=== PATIENT | female | born 1945 | race Caucasian/White ===

== ENCOUNTER 2020-08-03 00:47 | Outpatient (CLI) | payer MEDICARE, OTHER, SELFPAY ==
[2020-08-03 18:04] LABS: SARS-CoV-2 RNA PCR Negative
== END 2020-08-03 00:48 | disposition home or self-care (01) ==
LOC: ANHCOVIDDT 00:47
PROVIDERS: Visit Provider Internal Medicine Gastroenterology
DX: Z01.812 Encounter for preprocedural laboratory examination (principal); Z20.828 Contact with and (suspected) exposure to other viral communicable diseases
CPT/HCPCS: 87635; C9803; U0003

== ENCOUNTER 2020-08-06 00:20 | Day surgery (SDC) | payer MEDICARE, OTHER, SELFPAY ==
[2020-08-01 15:40] VITALS: BMI 30.7
[2020-08-06 07:55] VITALS: BP 140/86; PULSE 65; RESP 16; TEMP 36.4; O2SAT 97; BMI 31.0
[2020-08-06] MEDS: LACTATED RINGERS 1,000 ML 150 ML IV CONT (08:08)
--- NOTE | 2020-08-06 08:37 | WPDANESEPPF ---
Anes - Initial Pre Proc Eval Procedure: Operation Date: 08/06/20 09:00 Proposed Procedures p Esophagogastroduodenoscopy & Screening Colonoscopy - Juaquin Lyons MD Date/Time: 08/06/20 08:37 Surgeon: Juaquin Lyons MD Pre Op Diagnosis: dysphagia, ulcerative colitis, hx of polyps Patient Data Age: 74 Gender: F Height: 5 ft 4 in Weight: 82 kg Last Vital Signs Temp 97.5 F L 08/06/20 07:55 Pulse 65 08/06/20 07:55 Resp 16 08/06/20 07:55 BP 140/86 08/06/20 07:55 Pulse Ox 97 08/06/20 07:55 Allergies Allergy/AdvReac Type Severity Reaction Status Date / Time Sulfa (Sulfonamide Allergy Severe Other Verified 08/06/20 07:52 Antibiotics) Home Medications Medication Instructions Recorded Confirmed Type alprazolam 0.25 mg PO TID PRN 08/01/20 08/06/20 History atorvastatin 20 mg PO 3XW 08/01/20 08/06/20 History budesonide 6 mg PO DAILY 08/01/20 08/06/20 History bupropion HCl 300 mg PO DAILY 08/01/20 08/06/20 History duloxetine 60 mg PO DAILY 08/01/20 08/06/20 History enalapril maleate 20 mg PO DAILY 08/01/20 08/06/20 History gabapentin 600 mg PO TID 08/01/20 08/06/20 History hydrocodone-acetaminophen 1 tablet PO Q6H PRN 08/01/20 08/06/20 History omeprazole 20 mg PO DAILY 08/01/20 08/06/20 History primidone 100 mg PO TID 08/01/20 08/06/20 History propranolol 20 mg PO TID PRN 08/01/20 08/06/20 History Patient hx anesthesia problems: none Family hx anesthesia problems: none PMFSH Past Medical History Medical History (Updated 08/06/20 @ 08:36 by Ed Shine MD) Anxiety Depression Essential tremor GERD (gastroesophageal reflux disease) Hyperlipidemia Hypertension Social History Social History Alcohol intake: current Substance use: never Substance use type: does not use Living arrangements: with family Spiritual care concerns: No Anes - Eval Final PreProcedure Day of Procedure 10/27/20 08:37 Patient weight: overweight Heart: regular rate and rhythm Lungs: clear to auscultation Airway: Mallampati scale (has TMJ and would like bite block placed right before sleep) class II Neurological: alert and oriented Last oral intake: >/= 8 hours ASA classification: III Emergent: no Anesthetic plan: proceed Anesthesia type and monitoring: general GIVS and standard monitoring Informed Consent: The patient's anesthetic plan and its attendant risks and benefits were discussed with the patient/family/POA. Questions were solicited and answers provided to the satisfaction of the patient/family/POA.
--- NOTE | 2020-08-06 08:46 | P.HP_ITS ---
History of Present Illness History of Present Illness Consent: Risks, benefits, and alternatives have been discussed and questions answered. Patient agrees to proceed with procedure. Chief complaint: dysphagia, ulcerative colitis, hx of polyps Narrative: Jenny Villavicencio is a 74 year old female who has had increasing difficulty swallowing, particularly solid food. During a meal she may need to stop eating 1 even water will not pass. She has a history of having esophageal stricture several years ago. Her stools which have been saw for years remain soft and poorly formed at times requiring that she use Imodium. [facility] Past Medical History Medical History Anxiety Depression Essential tremor GERD (gastroesophageal reflux disease) Hyperlipidemia Hypertension Social History Social History Alcohol intake: current Substance use: never Substance use type: does not use Living arrangements: with family Spiritual care concerns: No Meds Home Medications and Allergies Home Medications Medication Instructions Recorded Confirmed Type alprazolam 0.25 mg PO TID PRN 08/01/20 08/06/20 History atorvastatin 20 mg PO 3XW 08/01/20 08/06/20 History budesonide 6 mg PO DAILY 08/01/20 08/06/20 History bupropion HCl 300 mg PO DAILY 08/01/20 08/06/20 History duloxetine 60 mg PO DAILY 08/01/20 08/06/20 History enalapril maleate 20 mg PO DAILY 08/01/20 08/06/20 History gabapentin 600 mg PO TID 08/01/20 08/06/20 History hydrocodone-acetaminophen 1 tablet PO Q6H PRN 08/01/20 08/06/20 History omeprazole 20 mg PO DAILY 08/01/20 08/06/20 History primidone 100 mg PO TID 08/01/20 08/06/20 History propranolol 20 mg PO TID PRN 08/01/20 08/06/20 History Allergies Allergy/AdvReac Type Severity Reaction Status Date / Time Sulfa (Sulfonamide Allergy Severe Other Verified 08/06/20 07:52 Antibiotics) Vital Signs Vital Signs - 24 hr 08/06/20 07:55 Temperature 36.4 C L Pulse Rate 65 Respiratory Rate 16 Blood Pressure 140/86 Pulse Oximetry 97 Exam Const: General: alert Orientation/consciousness: patient oriented x3 Resp: Auscultation: clear to auscultation bilaterally Cardio: Rhythm: regular rhythm GI: GI Palp: Yes Soft to palpation and No Tenderness to palpation present (GI) Neuro: General: patient oriented x3 Assessment and Plan Assessment and plan (1) Dysphagia: Code(s): R13.10 - Dysphagia, unspecified Status: Acute Assessment and Plan: EGD with possible biopsy or dilatation or cautery. (2) Chronic diarrhea: Code(s): K52.9 - Noninfective gastroenteritis and colitis, unspecified Status: Acute Assessment and Plan: Colonoscopy with possible biopsy or polypectomy or cautery or injection of substances.
[2020-08-06 09:24] VITALS: BP 91/45; PULSE 56; RESP 20; O2SAT 95
[2020-08-06 09:34] VITALS: BP 96/48; PULSE 55; RESP 20; O2SAT 97
[2020-08-06 09:44] VITALS: BP 121/74; PULSE 54; RESP 20; O2SAT 97
== END 2020-08-06 10:13 | disposition home or self-care (01) ==
PROVIDERS: PCP Internal Medicine; Visit Provider Internal Medicine Gastroenterology
PROC: 0DJ08ZZ Inspection of Upper Intestinal Tract, Via Natural or Artificial Opening Endoscopic (ICD-10-PCS; CPT 43235; principal; 2020-08-06 09:00)
DX: Z12.11 Encounter for screening for malignant neoplasm of colon (principal); R19.7 Diarrhea, unspecified; K57.30 Diverticulosis of large intestine without perforation or abscess without bleeding; I10 Essential (primary) hypertension; E78.5 Hyperlipidemia, unspecified; R13.10 Dysphagia, unspecified; K21.9 Gastro-esophageal reflux disease without esophagitis; F41.8 Other specified anxiety disorders; G25.0 Essential tremor
CPT/HCPCS: 45380; 43249; 43239; 87081; 88305; J2704; J7120

== ENCOUNTER 2024-02-13 12:19 | Emergency (ER) | payer MEDICARE, OTHER, SELFPAY ==
[2024-02-13] VITALS (14 sets, daily range): BP systolic 127–157; BP diastolic 70–126; PULSE 86–116; RESP 17–27; TEMP 36.8–38; O2SAT 90–96
--- NOTE | ~2024-02-13 | CT_ITS ---
EXAMINATION: CT facial bones wo con DATE: 02/13/2024 15:00 INDICATION: Facial pain TECHNIQUE: Computed tomography (CT) of the facial bones and maxillofacial region was performed withou t intravenous contrast. Coronal reconstructions were obtained. Automated exposure control and iterati ve reconstruction technique were employed. The dose-length product was 298.05 mGy-cm. COMPARISON: None. FINDINGS: No maxillofacial fractures. Specifically the mandible, zygomatic arches, nasal bones and emmanuel of the orbits and paranasal sinuses are all intact. There is mild leftward bowing of the nasal septum. Duncan ges of bilateral intraocular lens replacement. Orbits are otherwise normal. Mastoid air cells, middle ear cavities and paranasal sinuses are all clear. Severe osteoarthritis at the bilateral temporomand ibular joints. Chronic dental disease with multiple absent teeth and multiple dental restorations. Bi lateral parotid and submandibular glands are normal and symmetric. No pathologically enlarged lymphad enopathy at the face or visualized upper neck. Mild cervical levocurvature with severe spondylosis. IMPRESSION: 1. Severe cervical spondylosis and severe bilateral temporomandibular osteoarthritis. Reviewed, dictated and finalized at location A. IMPRESSION: 1. Severe cervical spondylosis and severe bilateral temporomandibular osteoarth ritis.
--- NOTE | ~2024-02-13 | CT_ITS ---
EXAMINATION: CTA chest DATE: 02/13/2024 17:13 INDICATION: Asymmetric left-sided superior mediastinal widening on chest radiograph TECHNIQUE: Computed tomographic angiography (CTA) of the chest was performed without and with 100 mL Omnipaque-350 intravenous contrast. Volume-rendered 3D-reconstructions of the aorta and large arterie s were constructed by the technologist on a separate workstation. Automated exposure control and iter ative reconstruction technique were employed. The dose-length product was 624.07 mGy-cm. COMPARISON: None. FINDINGS: There are small bilateral posterior layering pleural effusions with dependent compressive atelectasis in the bilateral lower lobes. There is an additional bandlike consolidation in the bilateral lower l obes and some paramediastinal atelectasis in the bilateral upper lobes. Mosaic attenuation in the upp er lungs most likely represents additional atelectasis with subsegmental regions of air trapping rela ollie to small airway disease. No smooth septal line thickening to suggest pulmonary edema. Heart size is normal. There is a moderate-sized surrounding pericardial effusion. There is fusiform aneurysmal dilation of the ascending aorta and aortic arch. This measures 5.3 x 4.7 cm in the ascending aorta at the level of the john and increases to 5.7 x 5.0 cm at the level of t he takeoff of the left subclavian artery where there is an intramural hematoma surrounding a penetrat ing atherosclerotic ulcer which measures approximately 1.5 cm in longitudinal length, 2.7 cm and circ umferential length and which extends up to 1 cm in depth. The aortic wall thickness inclusive of the intramural hematoma at this location measures approximately 1.5 cm. No evident dissection, aspen rupt ure or extramural contrast extravasation. The intramural hematoma appears to track proximally to the aortic root. The density appears slightly higher than that of the pericardial effusion. The hematoma does not appear to extend significantly beyond the takeoff of the left subclavian artery and there is no involvement of the great vessels arising from the arch. The more distal descending thoracic and v isualized upper abdominal aorta are normal in caliber. The left main and right coronary arteries are opacified with contrast. The dilation of the aorta exhibits mass effect with rightward deviation of t he trachea and proximal esophagus and extrinsic compression of the left brachiocephalic vein between the anterior margin of the aorta and the medial head of the clavicle. The injected contrast from the left upper extremity extends primarily to the superior vena cava via multiple cervical and upper ches t wall collaterals. There is fluid within the distal two thirds of the esophagus which could be seen with reflux. No path ologically enlarged thoracic lymphadenopathy. Likely benign 1.2 cm left thyroid nodule. Liver, gallbl adder, spleen, pancreas and bilateral adrenal glands are normal. Likely age-related mild bilateral re nal atrophy. IMPRESSION: 1. 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 Dr. Aguilera discussed these findings with Dr. Palma at 5:20 PM. 2. Moderate-sized pericardial effusion which is of lower density than the aortic intramural hematoma but nonetheless greater than simple fluid attenuation and cannot exclude hemopericardium. 3. Low-density small bilateral pleural effusions with associated compressive atelectasis in both lung s. Reviewed, dictated and finalized at location A. IMPRESSION: 1. 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
--- NOTE | ~2024-02-13 | XR_ITS ---
EXAMINATION: XR chest 1V portable DATE: 02/13/2024 14:10 INDICATION: Chest pain TECHNIQUE: frontal view of the chest was obtained. COMPARISON: None FINDINGS: Airspace opacities in the left mid and lower and right lower lung zones. Possible small left pleural effusion. Heart size is within normal limits for AP technique. There is widening of the left side of the superior mediastinum with rightward deviation of the trachea. The aortic knob appears prominent. IMPRESSION: 1. Opacities in the left mid to lower and right lower lung zones which could represent pneumonia, pul monary edema, atelectasis or some combination thereof. 2. Possible small left pleural effusion. 3. Asymmetric left-sided superior mediastinal widening with prominent aortic knob which could be rela ollie to an aortic aneurysm. Differential would also include intrathoracic goiter or other mediastinal mass or lymphadenopathy. Consider chest CT (preferably with intravenous contrast) for further evaluat ion. Reviewed, dictated and finalized at location A. IMPRESSION: 1. Opacities in the left mid to lower and right lower lung zones which could re present pneumonia, pulmonary edema, atelectasis or some combination thereof. 2. Possible small left pleural effusion. 3. Asymmetric left-sided superior mediastinal widening with prominent aortic kn ob which could be related to an aortic aneurysm. Differential would also includ e intrathoracic goiter or other mediastinal mass or lymphadenopathy. Consider c hest CT (preferably with intravenous contrast) for further evaluation.
--- NOTE | 2024-02-13 12:30 | ECG_ITS ---
SEE SCANNED COPY FOR CONFIRMED REPORT MTDD
[2024-02-13 13:10] LABS: Basophils Percent Auto 0.1 % (0.2-1.2); Eosinophils Absolute Auto 0.1 K/mm3 (0-0.3); Eosinophils Percent Auto 1.2 % (0-4.4); Hematocrit 35.8 % (37.0-47.0); Hemoglobin 11.6 g/dL (12.0-15.0); Immature Granulocyte Absolute 0.05 K/mm3 (0.00-0.031); Immature Granulocyte Percent A 0.5 % (0-0.5); Lymphocytes Absolute Auto 0.98 K/mm3 (0.9-3.2); Lymphocytes Percent Auto 10.7 % (18.3-44.2); Mean Corpuscular HGB Conc 32.4 g/dl (32-36); Mean Corpuscular Hemoglobin 30.6 pg (26-34); Mean Corpuscular Volume 94.5 fl (80-100); Mean Platelet Volume 11.2 fl (7.4-10.4); Monocytes Absolute Auto 1.1 K/mm3 (0.1-0.6); Monocytes Percent Auto 11.6 % (2.6-8.5); Neutrophils Percent Auto 75.9 % (45.5-73.1); Platelet Count Result 214 k/mm3 (150-375); Red Blood Count 3.79 M/mm3 (4.2-5.4); Red Cell Distribution Width 13.2 % (11.5-14.5); White Blood Count 9.2 K/mm3 (4.5-10.0)
[2024-02-13 13:20] LABS: Prothrombin Time 13.5 Seconds (11.1-14.7)
[2024-02-13 13:21] LABS: Alanine Aminotransferase 18 U/L (6-35); Albumin Level 4.3 g/dL (3.5-5.1); Alkaline Phosphatase 76 U/L (38-126); Anion Gap 6 mmol/L (4-12); Aspartate Amino Transferase 26 U/L (14-36); Blood Urea Nitrogen 10 mg/dL (7-17); Calcium 9.9 mg/dL (8.4-10.2); Carbon Dioxide 24 mmol/L (22-30); Chloride 104 mmol/L (98-107); Estimated CRCL calculation 56 ml/min; Estimated Glomerular Filt Rate > 60; Glucose 121 mg/dL (65-110); Lipase 24 U/L (23-300); Partial Thromboplastin Time 31.1 Seconds (22.3-36.8); Potassium 3.9 mmol/L (3.4-5.0); Sodium 134 mmol/L (137-145)
[2024-02-13 13:32] LABS: Troponin I < 0.012 ng/mL (0.000-0.034)
--- NOTE | 2024-02-13 14:00 | ED.GENADULT ---
HPI - General Adult General Chief complaint: Unspecified Stated complaint: TMJ pain Time Seen by Provider: 02/13/24 12:29 History of Present Illness HPI narrative: 78-year-old female presenting to the emergency department for evaluation of multiple complaints. Patient states she does have a longstanding history of TMJ over the last few weeks they have been working to adjust her dental plate and states that this has acutely worsened her TMJ. Patient states since Wednesday she has had uncontrolled pain. Patient states her entire body hurts. She states that the pain started her head and ?wash over her body like a curtain . Patient does take Vicodin for pain control. Patient states she was initially at [facility] on Wednesday but due to the excessive weight she ended up leaving. Patient states her symptoms have persisted and she presented to our emergency department for evaluation today. Related Data Home Medications Medication Instructions Recorded Confirmed alprazolam 0.25 mg tablet 0.25 mg PO TID PRN Anxiety 08/01/20 02/03/24 bupropion HCl 300 mg 24 hr tablet, 300 mg PO DAILY 08/01/20 02/03/24 extended release duloxetine 60 mg capsule,delayed 60 mg PO DAILY 08/01/20 02/03/24 release enalapril maleate 20 mg tablet 20 mg PO DAILY 08/01/20 02/03/24 gabapentin 600 mg tablet 600 mg PO TID 08/01/20 02/03/24 hydrocodone 5 mg-acetaminophen 325 1 tablet PO Q6H PRN Pain 08/01/20 02/03/24 mg tablet aripiprazole 2 mg tablet 2 mg PO DAILY 10/26/23 02/03/24 atorvastatin 20 mg tablet 20 mg PO DAILY 10/26/23 02/03/24 ezetimibe 10 mg tablet 10 mg PO DAILY 10/26/23 02/03/24 lamotrigine 25 mg tablet 25 mg PO DAILY 10/26/23 02/03/24 primidone 50 mg tablet 50 mg PO QHS 10/26/23 02/03/24 Allergies Allergy/AdvReac Type Severity Reaction Status Date / Time Sulfa (Sulfonamide Allergy Severe Other Verified 02/13/24 12:20 Antibiotics) Review of Systems Review of Systems: All systems reviewed & are unremarkable except as noted in HPI and below PMFSH Past Medical History Medical History Anxiety Depression Essential tremor GERD (gastroesophageal reflux disease) Hyperlipidemia Hypertension Surgical History Surgical History History of brain surgery brain stem History of hysterectomy History of left knee replacement Dr Tapia ~2007 Family History Family History Father Heart disease Other Cancer Social History Social History (Updated 02/03/24 @ 11:04 by Katharine Hu CMA) Smoking status: Never smoker Alcohol intake: current Substance use: never Substance use type: does not use Do You Feel Safe in your Home?: Yes Lack of Transportation: No Lack of Food: Never True Current Housing: I Have Housing Concerned About Future Housing: No Difficulty Paying Gas/Electric Bills: No Difficulty Paying for Meds: No Education: High School Diploma/GED Difficulty w/ Childcare or Family Care: No Living arrangements: with family Occupation/Education: retired Gender identity (if verbalized by the patient): Female Spiritual care concerns: No Exam Narrative: APPEARANCE: Uncomfortable appearing HEAD: normocephalic, atraumatic. EYES: PERRLA/EOMI, conjunctivae clear. NOSE: Normal no drainage EARS:TMS clear with good light reflex. THROAT: Pharynx clear, no exudate. NECK: Supple. No adenopathy, no masses. RESPIRATORY: Airway patent, respirations nonlabored. Clear to auscultation bilaterally, no rales, rhonchi, wheezing. CARDIOVASCULAR: Regular rate and rhythm without murmurs rubs or gallops. ABDOMINAL: Soft, nontender, nondistended, normal bowel sounds MUSCULOSKELETAL: Moves all extremities. Strength/ROM intact, No edema, No calf tenderness. NEURO: Alert. Cranial nerves II through XII intact. Grossly intact SKIN: Warm, dry. Normal Color
[2024-02-13] MEDS: fentaNYL CITRATE INJ (*CRX) 100 MCG/2 ML VIAL 50 MCG IV PUSH (14:07)
[2024-02-13] MEDS: ACETAMINOPHEN 500 MG TABLET 1000 MG PO (14:07)
--- NOTE | 2024-02-13 15:52 | ECG_ITS ---
SEE SCANNED COPY FOR CONFIRMED REPORT MTDD
[2024-02-13 16:34] LABS: Troponin I < 0.012 ng/mL (0.000-0.034)
[2024-02-13] MEDS: traMADol HCL (*CRX) 50 MG TABLET PO (17:14)
--- NOTE | 2024-02-13 18:51 | PC.NURSE ---
Pt is admitted to [facility] ICU 6726, report given to Rashaad OBRIEN and accepting MD is dr Jefferson
== END 2024-02-13 18:55 | disposition short-term general hospital (02) ==
PROVIDERS: Emergency Provider Emergency Medicine
DX: I71.22 Aneurysm of the aortic arch, without rupture (principal); I71.00 Dissection of unspecified site of aorta; E78.5 Hyperlipidemia, unspecified; I10 Essential (primary) hypertension; K21.9 Gastro-esophageal reflux disease without esophagitis; F41.9 Anxiety disorder, unspecified; F32.A Depression, unspecified; Z90.710 Acquired absence of both cervix and uterus; Z96.652 Presence of left artificial knee joint; I31.39 Other pericardial effusion (noninflammatory); I44.0 Atrioventricular block, first degree
CPT/HCPCS: 36415; 70486; 71045; 71275; 80053; 83690; 84484; 85025; 85610; 85730; 93005; 96374; 99291; A9270; J3010; Q9967

== ENCOUNTER 2025-06-22 09:32 | Emergency (ER) | payer MEDICARE, OTHER, SELFPAY ==
--- OUTSIDE RECORDS SUMMARY | 2009-06-12 09:15 | XMS_ITS | Continuity of Care Document ---
Author Organization [facility] [place] [address] [place] [address] Phone Care Team Providers Care It Professional Name Role Phone Martínez Vasquez Unavailable Unavailable Procedures Procedure Date Post-op Follow-up Visit Post-op Follow-up Visit Remove Cataract, Insert Lens,Comanaged A PreOp Assessment Performed Presbyopia Correcting IOL Post-op Follow-up Visit IOLMaster-Professional Post-op Follow-up Visit Post-op Follow-up Visit Remove Cataract, Insert Lens,Comanaged A PreOp Assessment Performed Presbyopia Correcting IOL IOLMaster Office/outpatient Visit, [facility] Script Printed/Phoned Pt Requ Or Pharm N ot Availab Advance Directives Directive Yes / No Effective Date File Name No Information Encounters Encounter Description Practice Location Reason(s) For Visit Diagnoses Date Provider Providers Copied on Encounter [facility], [address], [place], [place], [id number], [place] tel:[phone] [facility] No Information 2-200 9 Pedro Soliz. [address] , [address], [place], [address], [place]. tel:[phone] [facility], [address], [place], [place], [id number], [place] tel:[phone] SEC [facility] [place] No Information 6200 9 Doiashok Soliz. [address] , [address], [place], [place], [facility], . tel:[phone] [facility], [address], [place], [place], [id number], [place] tel:[phone] [facility] No Information 5[address] Doiashok Soliz. [address] , [address], [place], [place], [facility], [place]. tel:[phone] Referring Provider: Rashaad Bartlett, [address] [place] [address], [place], [facility]. tel:[phone] [facility], [address], [place], [place], [id number], [place] tel:[phone] [facility] No Information 0-200 9 Pedro Soliz. [address] , [address], [place], [facility], [place]. tel:[phone] Referring Provider: Martínez Bartlett, [address], [place], [facility]. tel:[phone] [facility], [address], [place], [place], [address], [place] tel:[phone] [facility] No Information 3[address] Pedro Soliz. [facility] [address] , [address], [place], [facility], [place]. tel:[phone] Referring Provider: Martínez Bartlett, [address], [place], [facility]. tel:[phone] [facility], [address], [place], [place], [id number], [place] tel:[phone] [facility] [place] [facility] No Information 9 Pedro Soliz. [address] , [address], [place], [facility], . tel:[phone] [facility], [address], [place], [place], [id number], tel:[phone] [facility] No Information [address] 9 Pedro Soliz. [address] , [address], [place], [facility], [place]. tel:[phone] Referring Provider: Rashaad Bartlett, [address] [place] [address], [place], [facility]. tel:[phone] [facility], [address], [place], [place], [id number], tel:[phone] [facility] No Information 9 Pedro Soliz. [facility] [address] , [address], [place], [facility], [place]. tel:[phone] Referring Provider: Martínez Bartlett, [address], [place], [facility]. tel:[phone] Office/outpat ient Visit, [facility], [address], [place], [place], [id number], tel:[phone] [facility] [place] No Information 9 Pedro Soliz. [facility] [address] , [address], [place], [facility], [place]. tel:[phone] Referring Provider: Rashaad Bartlett, [address] [place] [address], [facility]. tel:[phone] Family History Family Member Type Diagnosis Age At Onset No Information Payers Payer name Insurance type Covered green party ID Authoriza tion(s) No Information Social History Type Description Quantity Date Captured Comments Sex Female Smoking Status No Information Chief Complaint And Reason For Visit No Information Reason For Referral Reason For Referral No Information History Of Present Illness Encounter Date Complaint History Of Prese nt Illness No Information Functional Status Date Functional Assessmen t No Information Instructions Date Instruction Additional Infor mation No Information Assessments Type Assessment Date No Information Patient Care Teams Name Effective Dates (start - stop) Status Members No Information
--- NOTE | ~2025-06-22 | XR_ITS ---
X-rays right wrist Indication: Injury Comparison: X-rays right hand 02/03/2024 Technique: 4 views right wrist Findings/Impression: 1. Tiny nondisplaced fracture proximal triquetrum not excluded. 2. Otherwise no acute fracture or dislocation right wrist. 3. Radiocarpal joint space narrowing. 4. Mild carpal row degenerative changes. Reviewed, dictated and finalized at location R.
--- NOTE | ~2025-06-22 | CT_ITS ---
Clinical history:Rule out fracture EXAM:CT wrist right without contrast TECHNIQUE:Multiple contiguous axial images of the right wrist were obtained without contrast. Reformatted images were obtained. Comparisons:Right wrist x-ray 06/22/2025 FINDINGS: Evaluation of the muscular tendinous structures is limited due to CT technique. Bones appear osteopenic. Soft tissue swelling about the right wrist. Severe degenerative change in the first carpometacarpal joint. Moderate degenerative change in the first metacarpophalangeal joint. Mild chondrocalcinosis about the wrist. Borderline widening of the scapholunate joint space. IMPRESSION: 1. No CT evidence for an acute fracture. 2. Borderline widening of the scapholunate joint space. Differential includes anatomic variant versus ligamentous injury of indeterminate age. If symptoms persist or worsen, consider a short-term follow-up study or MRI imaging for further assessment. Reviewed, dictated and finalized at location Q. IMPRESSION: 1. No CT evidence for an acute fracture. 2. Borderline widening of the scapholunate joint space. Differential includes a natomic variant versus ligamentous injury of indeterminate age. If symptoms persist or worsen, consider a short-term follow-up study or MRI wilma ging for further assessment.
[2025-06-22 09:36] VITALS: TEMP 36.6
--- NOTE | 2025-06-22 10:00 | ED.UPPEXIN ---
HPI - Extremity Injury (Upper) General Chief Complaint: Extremity Injury, Upper Stated Complaint: right wrist injury Time Seen by Provider: 06/22/25 09:35 Source: patient Mode of arrival: ambulatory Limitations: no limitations History of Present Illness HPI narrative: 79 YEARS OLD WHITE FEMALE CAME TO THE ED BY PRIVATE CAR COMPLAINING OF PAIN AND SWELLING OF THE RIGHT WRIST AFTER HAVING CAT SCRATCH TO THE RIGHT HAND LAST NIGHT. SHE DENIES ANY FEVER, CHILLS, NAUSEA, VOMITING OR TRAUMA Related Data Home Medications ?Medication ?Instructions ?Recorded ?Confirmed ?Last Taken ?Type alprazolam 0.25 mg tablet 0.25 mg PO TID PRN Anxiety 08/01/20 06/12/25 08/06/20 History bupropion HCl 300 mg 24 hr tablet, 300 mg PO DAILY 08/01/20 06/12/25 08/06/20 History extended release duloxetine 60 mg capsule,delayed 60 mg PO DAILY 08/01/20 06/12/25 08/06/20 History release enalapril maleate 20 mg tablet 20 mg PO DAILY 08/01/20 06/12/25 08/05/20 History gabapentin 600 mg tablet 600 mg PO TID 08/01/20 06/12/25 08/06/20 History hydrocodone 5 mg-acetaminophen 325 1 tablet PO Q6H PRN Pain 08/01/20 06/12/25 08/05/20 History mg tablet aripiprazole 2 mg tablet 2 mg PO DAILY 10/26/23 06/12/25 Unknown History atorvastatin 20 mg tablet 20 mg PO DAILY 10/26/23 06/12/25 Unknown History ezetimibe 10 mg tablet 10 mg PO DAILY 10/26/23 06/12/25 Unknown History lamotrigine 25 mg tablet 25 mg PO DAILY 10/26/23 06/12/25 Unknown History primidone 50 mg tablet 50 mg PO QHS 10/26/23 06/12/25 Unknown History Allergies Allergy/AdvReac Type Severity Reaction Status Date / Time Sulfa (Sulfonamide Allergy Severe Other Verified 06/22/25 09:41 Antibiotics) Review of Systems Review of Systems: All systems reviewed & are unremarkable except as noted in HPI and below PMFSH Past Medical History Medical History Schatzki's ring Collagenous colitis Traumatic tear of thoracic aorta Depression Anxiety GERD (gastroesophageal reflux disease) Hypertension Hyperlipidemia Essential tremor Surgical History Surgical History History of brain surgery brain stem History of left knee replacement Dr Tapia ~2007 History of hysterectomy Family History Family History Father Heart disease Other Cancer Social History Social History Smoking status: Never smoker Alcohol intake: current Substance use: never Substance use type: does not use Do You Feel Safe in your Home?: Yes Lack of Transportation: No Lack of Food: Never True Current Housing: I Have Housing Concerned About Future Housing: No Difficulty Paying Gas/Electric Bills: No Difficulty Paying for Meds: No Education: High School Diploma/GED Difficulty w/ Childcare or Family Care: No Living arrangements: with family Occupation/Education: retired Gender identity (if verbalized by the patient): Female Spiritual care concerns: No Exam Narrative: GENERAL APPEARANCE: WELL-DEVELOPED, WELL-NOURISHED SKIN: NORMAL COLOR HEAD: NORMOCEPHALIC, NONTRAUMATIC EYES: CLEAR CONJUNCTIVA ENT: OROPHARYNX NORMAL, EARS NORMAL, NOSE NORMAL NECK: SUPPLE, NONTENDER CHEST AND RESPIRATORY: AIRWAY PATENT, NO RESPIRATORY DISTRESS, NO ACCESSORY MUSCLE USE HEART: REGULAR RATE/RHYTHM ABDOMEN: SOFT, NONTENDER, NO ORGANOMEGALY, QUIET BOWEL SOUNDS VASCULAR: NORMAL PERIPHERAL PULSES, NORMAL CAPILLARY REFILL. MUSCULOSKELETAL: RIGHT WRIST EXAM SHOWED ERYTHEMATOUS CHANGES ANTERIORLY, WARM TO TOUCH, NO DISCHARGE, MULTIPLE SCRATCH AT THE DORSAL SIDE OF THE RIGHT HAND AND RIGHT WRIST, LIMITED RANGE OF MOTION OF THE RIGHT WRIST BECAUSE OF PAIN NEUROLOGIC: ALERT AND ORIENTED ?3, SHAKE MAKER IS NORMAL TESTED, NO GROSS MOTOR DEFICIT Course Vital Signs Vital signs: Vital Signs Temperature 36.6 C 06/22/25 09:36 Temperature 36.6 C 06/22/25 09:36 MDM - Extremity Injury (Upper) MDM Narrative Medical decision making narrative: DIFFERENTIAL DIAGNOSIS INCLUDE CAT SCRATCH DISEASE IN THE ED PATIENT RECEIVED A TETANUS SHOT, AND AUGMENTIN P.O. PRIOR TO DISCHARGE ON AUGMENTIN. Differential Diagnosis Differential diagnosis: Likely sprain and strain of wrist and other ( ABOVE) Imaging Data Radiologist's impression: Impressions Wrist CT 06/22/25 12:48 IMPRESSION: 1. No CT evidence for an acute fracture. 2. Borderline widening of the scapholunate joint space. Differential includes anatomic variant versus ligamentous injury of indeterminate age. If symptoms persist or worsen, consider a short-term follow-up study or MRI imaging for further assessment. Critical Care Time Critical Care Time Critical Care Time: No Discharge Plan Discharge Clinical Impression: Cat scratch Patient Disposition: Home Condition: Stable Instructions: Antibiotic Form, Cat Scratch Disease (ED) Additional Instructions: RETURN IF SYMPTOMS ARE WORSENING , CALL YOUR FAMILY PHYSICIAN FOR APPOINTMENT, TAKE TYLENOL, IBUPROFEN NEEDED FOR ACHES AND PAIN, CONTINUE HOME MEDICATIONS. ICE PACK 20 MINUTES/HOUR NEEDED WRIST BRACE TO LIMIT MOVEMENT NEEDED KEEP RIGHT HAND ELEVATED WASH CAT SCRATCH WITH WARM WATER AND SOAP Patient Language: Sinhala Prescriptions: New amoxicillin-pot clavulanate [Augmentin] 500-125 mg tablet 1 tablet PO Q8H Qty: 21 0RF No Action lamotrigine 25 mg tablet 25 mg PO DAILY aripiprazole 2 mg tablet 2 mg PO DAILY ezetimibe 10 mg tablet 10 mg PO DAILY atorvastatin 20 mg tablet 20 mg PO DAILY primidone 50 mg tablet 50 mg PO QHS gabapentin 600 mg tablet 600 mg PO TID hydrocodone-acetaminophen 5-325 mg tablet 1 tablet PO Q6H PRN (Reason: Pain) enalapril maleate 20 mg tablet 20 mg PO DAILY alprazolam 0.25 mg tablet 0.25 mg PO TID PRN (Reason: Anxiety) bupropion HCl 300 mg tablet extended release 24 hr 300 mg PO DAILY duloxetine 60 mg capsule,delayed release(DR/EC) 60 mg PO DAILY budesonide 3 mg capsule,delayed,extend.release 6 mg PO DAILY 90 Days Qty: 180 3RF Follow-up/Referrals: UNKNOWN,DOCTOR [Primary Care Provider]
[2025-06-22] MEDS: TETANUS,DIPHTHERIA,AC PERTUSSIS ADULT (0.5 ML) BOOSTRIX IM (10:32)
--- OUTSIDE RECORDS SUMMARY | 2025-06-22 10:33 | XMS_ITS | Encounter Summary ---
Author Organization [facility] Address [address] [place] [address] Care Team Providers Care Courtroom Reporter Name Role Phone Timothy De Guzman MD Primary Care Provider Encounter Details Date Type Department Care Team (Late st Contact Info) Description 10/02/2019 Lab Requisition [facility] Lab [address] [place] [id number] Irina Holloway MD [address] [facility] [address] [place] [address] Social History Tobacco Use Types Packs/Day Years Used Date Smoking Tobacco: Never Alcohol Use Standard Drinks/Week Comments No 0 (1 standard drink = 0.6 oz pur e alcohol) Comments Unknown Sex and Gender Information Value Date Recorded Sex Assigned at Not on file Legal Sex Female 5:57 AM [employer] [employer] Gender Identity Not on file Sexual Orientation Not on file documented as of this encounter Plan of Treatment Not on file documented as of this encounter Procedures Procedure Name Priority Date/Time Associated Diagnosis Comments DERMATOPATHOLOGY Routine 09/29/2019 12:0 0 AM [facility] documented in this encounter Results * DERMATOPATHOLOGY (09/29/2019 12:00 AM [employer]) Case Report Dermatopathology Report Case: [id number] Authorizing Provider: Irina Holloway MD Collected: 09/29/2019 12:00 AM Ordering Location: [facility] Received: 10/02/2019 06:41 AM Pathologist: Fabby Graves MD Specimen: Skin, right chest 12:54 PM [facility] DER[facility] Final Diagnosis Specimen A. SKIN, right chest: BENIGN VERRUCOUS KERATOSIS, INFLAMED (L82.1) 12:54 PM [facility] DERMATOPATHOLOGY [facility]ORATORY at [address] [facility] Clinical History R/O SK vs other; irritated. 12:54 PM [facility] Gross Description Specimen A: Received is one formalin filled container labeled with the patient's name and designated right chest. The specimen consists of a shave measuring [id number]. Jar 0. 12:54 PM [facility] Microscopic Description Specimen A. SKIN, right chest: Sections show hyperkeratosis, papillomatosis, hypergranulosis, and acanthosis. Inflammatory cells are present within the dermis. These histological findings can be seen in a verruca vulgaris or a seborrheic keratosis. 12:54 PM [facility] DERMAT[facility] Disclaimer An external and internal positive and negative controls are appropriate for the histochemical, immunohistochemical and immunofluorescence stain(s) in this case (if any), except where stated explicitly. The performance characteristics of the stain(s) cited in this report were developed and its performance characteristic determined by the Dermatopathology Laboratory at [facility], directed by Dr. Clementine Graves. These tests need not be, and therefore are not, approved by the [place] Food and Drug Administration. The tests are used for clinical purposes. Billing Codes Specimen Charges Stain Charges 78728 1 12:54 PM [facility] DER[facility] Embedded Images 12:54 PM [facility] Pathology/Cytolog y TISSUE SPECIMEN FROM SKIN / Unknown 09/29/2019 10/02/2019 6:41 AM [facility] Irina Holloway MD LAB - PATHOLOGY/CYTOLOGY OR DERABLES Final Result DERMATOPATHOLOGY LABORATORY [facility] - Department of Dermatology [address], [address] Lab [address] [phone] documented in this encounter Visit Diagnoses Not on filedocumented in this encounter Care Teams Courtroom Reporter Relationship Specialty Start Date End Date Timothy De Guzman MD [address] [facility] [address] [place] [address] PCP - General 01/12/12 documented as of this encounter
--- OUTSIDE RECORDS SUMMARY | 2025-06-22 10:33 | XMS_ITS | Clinical Summary ---
Author Organization [facility] [address] [place] [id number] Care Team Providers Care Workflow Developer Name Role Phone Marietta Villa MD Primary Care Provider NotestineGeeta DPT Unavailable [phone] Miscellaneous, Not In File Unavailable Unava ilable Cassandra Good RN Unavailable Allergies Active Allergy Reactions Criticality Noted Date Comments Sulfa (Sulfonamide Antibiotics) Other (See comments) High Reaction: Kidneys pain, , Reaction: Urinary Retention, Trimethoprim Unknown 08/16/2017 Part of bactrim Medications atorvastatin (LIPITOR) 20 mg tabletIndications:Pure hypercholesterolemia Take 1 tablet (20 mg total) by mouth daily 90 tablet [address] (PROTONIX) 40 mg EC tabletIndications:Stres s Ulcer Prophylaxis Take 1 tablet (40 mg total) by mouth daily 024 Active Additional Information Patient taking differently:40 mg oralAs needed, Indications: Stress Ulcer Prophylaxis, Reported on 05/15/2025 budesonide EC (ENTOCORT EC) 3 mg 24 hr capsule Take 2 capsules (6 mg total) by mouth every morning Active DULoxetine DR (CYMBALTA) 60 mg capsule Take 1 capsule (60 mg total) by mouth daily 90 capsule 3 025 2025 Active naloxone (NARCAN) 4 mg/actuation spray,non-aerosol Administer 1 spray into affected nostril(s) as needed for opioid reversal or respiratory depression Call 911. Administer a single spray in one nostril. Repeat every 3 minutes as needed if no or minimal response. 1 each 025 Active ALPRAZolam (XANAX) 0.25 mg tabletIndications:Anxie ty Take 1 tablet (0.25 mg total) by mouth 3 (three) times a day as needed for anxiety 90 tablet 5 025 Active buPROPion XL (Wellbutrin XL) 300 mg 24 hr tablet Take 1 tablet (300 mg total) by mouth every morning 30 tablet 11 025 2025 Active buPROPion XL (WELLBUTRIN XL) 150 mg 24 hr tablet Take 1 tablet (150 mg total) by mouth every morning 30 tablet 11 025 Active lamoTRIgine (LaMICtal) 100 mg tablet Take 1 tablet (100 mg total) by mouth daily 30 tablet 11 025 2025 Active enalapril (VASOTEC) 20 mg tablet Take 1 tablet by mouth once daily 100 tablet 1 025 Active HYDROcodone-acetaminoph en (NORCO) 5-325 mg per tabletIndications:Pain Take 1 tablet by mouth every 6 (six) hours as needed for pain 90 tablet 025 Active ezetimibe (ZETIA) 10 mg tablet Take 1 tablet by mouth once daily 90 tablet 025 Active gabapentin (NEURONTIN) 600 mg tablet TAKE 1 TABLET BY MOUTH THREE TIMES DAILY 270 tablet 025 Active primidone (MYSOLINE) 250 mg tabletIndications:Essen tial Tremor Take 1 tablet (250 mg total) by mouth 2 (two) times a day 180 tablet 1 025 Active Active Problems Patient Care Coordination No te Formatting of this note migh t be different from the original. This patient has enrolled in the [facility] ([facility]). 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 Date Enrolled in Program: May 19, 2018. Diagnosis for Enrollment: PNA Problem Noted Date Diagnosed Date Grief 09/11/2024 Assessment & Plan (03/04/2025 11:06 PM CDT): of on 08/27/2025. Discussed at length with the patient today. Supportive counseling provided. Assessment & Plan (12/27/2024 1:35 PM CDT): of on 08/27/2025. Discussed at length with the patient today. Supportive counseling provided. Assessment & Plan (11/01/2024 2:21 PM DECORATING SUPERVISOR): of on 08/27/2025. Discussed at length with the patient today. Supportive counseling provided. Assessment & Plan (09/11/2024 7:23 AM DECORATING SUPERVISOR): of this past Wednesday. Discussed at length with the patient today. Supportive counseling provided. Transfusion reaction 02/25/2024 Assessment & Plan (03/05/2024 10:44 AM CDT): Asymptomatic-note just added about new antibodies Continue to monitor for symptoms Assessment & Plan (03/04/2024 10:47 AM CDT): Asymptomatic-note just added about new antibodies Continue to monitor for symptoms Assessment & Plan (03/01/2024 3:00 PM CDT): Asymptomatic-note just added about new antibodies Continue to monitor for symptoms Assessment & Plan (02/29/2024 12:26 PM CDT): Asymptomatic-note just added about new antibodies Continue to monitor for symptoms Assessment & Plan (02/27/2024 2:05 PM CDT): Asymptomatic-note just added about new antibodies Continue to monitor for symptoms Assessment & Plan (02/25/2024 4:35 PM CDT): Asymptomatic-note just added about new antibodies Continue to monitor for symptoms Essential tremor 02/24/2024 Assessment & Plan (02/24/2024 9:44 AM CDT): - holding home propranolol in setting of recent surgery 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 Assessment & Plan (02/24/2024 9:45 AM CDT): - ENT consulted 02/20 - PPI increased to BID - OP f/u, NTD inpatient HLD (hyperlipidemia) 02/24/2024 Assessment & Plan (03/05/2024 10:44 AM CDT): Continue statin therapy Assessment & Plan (03/04/2024 10:47 AM CDT): Continue statin therapy Assessment & Plan (03/01/2024 2:57 PM CDT): Continue statin therapy Assessment & Plan (02/29/2024 12:28 PM CDT): Continue statin therapy Assessment & Plan (02/27/2024 2:03 PM CDT): Continue statin therapy Assessment & Plan (02/25/2024 4:26 PM CDT): Continue statin therapy Assessment & Plan (02/24/2024 9:46 AM CDT): Restarted home atorvastatin - Consider restarting zetia 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 Vascular consulted she has a pulse there however is cooler. Nothing to do at this time. A-line on that side removed and bear hugger applied. - Non-op per vascular - BL arterial UE dopplers- evidence of LUE arterial obstruction near the axillary artery. Right arm is warm with palpable pulse, intact motor fx GERD (gastroesophageal reflux disease) Assessment & Plan (03/05/2024 10:44 AM CDT): Continue PPI therapy Assessment & Plan (03/04/2024 10:47 AM CDT): Continue PPI therapy Assessment & Plan (03/01/2024 2:57 PM CDT): Continue PPI therapy Assessment & Plan (02/29/2024 12:28 PM CDT): Continue PPI therapy Assessment & Plan (02/27/2024 2:03 PM CDT): Continue PPI therapy Assessment & Plan (02/25/2024 4:22 PM CDT): Continue PPI therapy Assessment & Plan (02/24/2024 9:47 AM CDT): PUD PPX: pantoprazole 40 mg daily Diet:NPO, Placed SBFT, TFs ordered CKD (chronic kidney disease) 02/24/2024 Assessment & Plan (03/05/2024 10:43 AM CDT): Monitor daily BMP Strict I&O Avoid nephrotoxins Cr stable Assessment & Plan (03/04/2024 10:48 AM CDT): Monitor daily BMP Strict I&O Avoid nephrotoxins Cr stable Assessment & Plan (03/01/2024 2:55 PM CDT): Monitor daily BMP Strict I&O Avoid nephrotoxins Cr stable Assessment & Plan (02/29/2024 12:30 PM CDT): Monitor daily BMP Strict I&O Avoid nephrotoxins Assessment & Plan (02/27/2024 2:02 PM CDT): Monitor daily BMP Strict I&O Avoid nephrotoxins Assessment & Plan (02/25/2024 4:29 PM CDT): Monitor daily BMP Strict I&O Avoid nephrotoxins Assessment & Plan (02/24/2024 9:48 AM CDT): BMP with BUN 9, Cr 0.73 on admission (Cr Cl 46.4) - per ICU goals: maintain K>4, Mg> 2, Phos> 2.5, iCal > 4.5 - lasix BID for diuresis to meet negative FBG Leukocytosis 02/24/2024 Assessment & Plan (03/05/2024 10:44 AM CDT): WBC down to 6.[address] C/A/P to rule out sources of infection 02/24 with expected post-op findings Started on Keflex this morning (02/26) for what appears like a cellulitis of the right cheek where she has a small scab and holy cross sized redness which is warm to touch compared to surrounding skin; however, urine culture is now positive for Klebsiella so will switch to ceftriaxone. ID stewardship came by this morning and indicated can complete ceftriaxone today (03/01) Assessment & Plan (03/04/2024 10:47 AM CDT): WBC down to 6.[address] C/A/P to rule out sources of infection 02/24 with expected post-op findings Started on Keflex this morning (02/26) for what appears like a cellulitis of the right cheek where she has a small scab and holy cross sized redness which is warm to touch compared to surrounding skin; however, urine culture is now positive for Klebsiella so will switch to ceftriaxone. ID stewardship came by this morning and indicated can complete ceftriaxone today (03/01) Assessment & Plan (03/03/2024 11:58 AM CDT): WBC down to 8.[address] C/A/P to rule out sources of infection 02/24 with expected post-op findings Started on Keflex this morning (02/26) for what appears like a cellulitis of the right cheek where she has a small scab and holy cross sized redness which is warm to touch compared to surrounding skin; however, urine culture is now positive for Klebsiella so will switch to ceftriaxone. ID stewardship came by this morning and indicated can complete ceftriaxone today (03/01) Assessment & Plan (02/29/2024 12:27 PM CDT): WBC down to 12.4 CT C/A/P to rule out sources of infection 02/24 with expected post-op findings Started on Keflex this morning (02/26) for what appears like a cellulitis of the right cheek where she has a small scab and holy cross sized redness which is warm to touch compared to surrounding skin; however, urine culture is now positive for Klebsiella so will switch to ceftriaxone. Assessment & Plan (02/28/2024 1:39 PM CDT): WBC down to 14.[address] C/A/P to rule out sources of infection 02/24 with expected post-op findings Started on Keflex this morning (02/26) for what appears like a cellulitis of the right cheek where she has a small scab and holy cross sized redness which is warm to touch compared to surrounding skin; however, urine culture is now positive for Klebsiella so will switch to ceftriaxone. Assessment & Plan (02/25/2024 4:24 PM CDT): WBC 17.6 today from 17.[address] C/A/P to rule out sources of infection Assessment & Plan (02/24/2024 9:50 AM CDT): Leukocytosis Likely inflammatory following procedure. Slowly increasing WBCs over the past few days without over s/s of infection. Continues to be afebrile. Has had her CVC for 9d as of today (02/23) so can likely take that out soon. - low threshold for infectious workup if febrile - No current indication for culture, consider if temp > 38.5 - Continue periop antibiotics to completion Intramural hematoma 02/13/2024 Assessment & Plan (02/24/2024 9:45 AM CDT): Intimomedial tear Hemomediastinum Hemopericardium HTN Presented to OSH on 02/12 with CP and L jaw pain. CT demonstrated acute aortic syndrome with concerns for hemomediastinum and hemopericardium without evidence of tamponade. She urgently transferred to [facility] for further management. She was initially started on impulse control with esmolol. This was transitioned to Clevidipine in the post op setting. With SBP goal 110-130 and HR 70-85. She is s/p repair on 02/[address] surgery. - Daily CXR - MAP > 65 - K> 4 and mag >2 - metop 12.5 BID Closed nondisplaced fracture of fifth right meta tarsal bone 07/01/2023 Lightheadedness 06/18/2023 Acute pain 06/18/2023 Assessment & Plan (03/07/2024 11:07 AM CDT): Monitor pain and adjust medications as needed for pain control Stopped oxy and robaxin for mental status issues Continue scheduled tylenol Increase gabapentin to 200mg TID for her fibromyalgia Assessment & Plan (03/04/2024 10:49 AM CDT): Monitor pain and adjust medications as needed for pain control Stopped oxy and robaxin for mental status issues Continue scheduled tylenol Assessment & Plan (03/01/2024 2:54 PM CDT): Monitor pain and adjust medications as needed for pain control Stopped oxy and robaxin for mental status issues Continue scheduled tylenol Assessment & Plan (02/29/2024 12:33 PM CDT): Monitor pain and adjust medications as needed for pain control Stopped oxy and robaxin for mental status issues Assessment & Plan (02/27/2024 2:02 PM CDT): Monitor pain and adjust medications as needed for pain control Assessment & Plan (02/25/2024 4:30 PM CDT): Monitor pain and adjust medications as needed for pain control Assessment & Plan (02/24/2024 9:42 AM CDT): Acute Surgical pain Chronic pain (cervical spondylosises, OA and severe TMJ) Takes vicodin 5-325 at home, gabapentin 600 TID, duloxetine 60 daily. Once more awake will add back her home medications. - kay APAP 1g q6hr - PRN oxy 2.5mg q4hr - kay robaxin - PRN hydromorphone 0.2mg for breakthrough Generalized anxiety disorder 03/10/2023 Assessment & Plan (05/27/2025 10:55 PM CDT): The patient presents with a chronic condition characterized by ongoing and persistent symptoms. Today's medication adjustments include: None. Insight-oriented and supportive counseling was provided to address the patient's psychological and emotional needs. We will continue with the management plan as previously discussed, ensuring ongoing monitoring and adjustments as necessary to optimize the patient's health outcomes. Assessment & Plan (08/30/2024 11:37 AM DECORATING SUPERVISOR): Chronic condition with persistent symptoms. Medication changes today: none Insight-oriented, supportive counseling provided-validation and empathy provided. Continued management as discussed Assessment & Plan (03/07/2024 11:14 AM CDT): Currently holding home xanax for changes in mental status at times Geriatric consult (signed off) actually recommended psych consult Appreciate Psychiatry input see depression problem Will need to follow up with home psych dr lutz Requesting her xanax for anxiety - will restart and monitor Assessment & Plan (03/04/2024 10:48 AM CDT): Currently holding home xanax for changes in mental status at times Geriatric consult (signed off) actually recommended psych consult Appreciate Psychiatry input see depression problem Added Atarax PRN for anxiety Will need to follow up with home psych dr lutz Assessment & Plan (03/01/2024 2:57 PM CDT): Currently holding home xanax for changes in mental status at times Geriatric consult actually recommended psych consult Appreciate Psychiatry input see depression problem Assessment & Plan (02/29/2024 12:28 PM CDT): Currently holding home xanax for changes in mental status at times Geriatric consult actually recommended psych consult Consulted psych to help with meds Assessment & Plan (02/28/2024 1:40 PM CDT): Currently holding home xanax for changes in mental status at times Geriatric consult actually recommended psych consult Consulted psych to help with meds Assessment & Plan (02/25/2024 4:31 PM CDT): Currently holding home xanax for changes in mental status at times Geriatric consult to help Assessment & Plan (06/02/2023 11:18 AM CDT): Chronic condition with persistent symptoms. Medication changes today: none Insight-oriented, supportive counseling provided-validation and empathy provided. Continued management as discussed Assessment & Plan (04/25/2023 2:10 PM CDT): Chronic condition with persistent symptoms. Medication changes today: none Insight-oriented, supportive counseling provided-validation and empathy provided. Continued management as discussed Depression 10/11/2022 Assessment & Plan (03/07/2024 11:11 AM CDT): Continue home medications Holding xanax Appreciated Psychiatry input 03/01: Recommendations: -Continue current regimen of bupropion 100mg TID, aripirazole 2mg qday, lamotrigine 25mg BID during admission. -added hydroxyzine 25mg qday PRN for anxiety while inpatient -Patient should reach out to outpatient psychiatrist after discharge to discuss need for additional medications -Continue delirium precautions -patient alert and awake requesting her xanax for anxiety, will restart and see how she does Assessment & Plan (03/04/2024 10:48 AM CDT): Continue home medications Holding xanax Appreciated Psychiatry input 03/01: Recommendations: -Continue current regimen of bupropion 100mg TID, aripirazole 2mg qday, lamotrigine 25mg BID during admission. -added hydroxyzine 25mg qday PRN for anxiety while inpatient -Patient should reach out to outpatient psychiatrist after discharge to discuss need for additional medications -Continue delirium precautions Assessment & Plan (03/01/2024 2:55 PM CDT): Continue home medications Holding xanax Appreciated Psychiatry input 03/01: Recommendations: -Continue current regimen of bupropion 100mg TID, aripirazole 2mg qday, lamotrigine 25mg BID during admission. -Can consider hydroxyzine 25mg qday PRN for anxiety while inpatient -Patient should reach out to outpatient psychiatrist after discharge to discuss need for additional medications -Continue delirium precautions Assessment & Plan (02/29/2024 12:30 PM CDT): Continue home medications Holding xanax Consult psych in regard to her home meds/inpatient meds Assessment & Plan (02/28/2024 1:44 PM CDT): Continue home medications Holding xanax Consult psych in regard to her home meds/inpatient meds Assessment & Plan (02/25/2024 4:29 PM CDT): Continue home medications Holding xanax Consult geriatrics Assessment & Plan (02/24/2024 9:43 AM CDT): Depression Anxiety Takes the following at home buproprion, duloxetine, lamotrigine, primidone, aripiprazole. - Restarted lamotrigine, aripiprazole - atarax PRN for anxiety, home xanax held Dysequilibrium 08/05/2022 Assessment & Plan (09/11/2024 7:22 AM DECORATING SUPERVISOR): Chronic condition, persistent symptoms, etiology not fully elucidated. Rule out neurodegenerative disorder-MRI of the brain ordered. Discuss results at next appointment. Assessment & Plan (08/05/2022 12:24 PM CDT): Acute on chronic, persistent. Differential diagnosis includes peripheral neuropathy, a musculoskeletal disorder interfering with gait, a vestibular disorder, a cerebellar disorder, cervical spondylosis Decrease Lamotrigine to 25 mg daily and see if any benefit Low vitamin B12 level 08/05/2022 Vertigo 03/10/2022 Assessment & Plan (07/08/2022 10:25 AM CDT): Persistent. Disabling at times. Assessment & Plan (03/10/2022 8:23 PM CDT): Off-label trial of stress dose of steroids. Follow-up with treatment team as advised. Could be related to lamotrigine. Tinnitus of both ears 11/20/2021 Bilateral impacted cerumen 11/20/2021 Benign paroxysmal positional vertigo of left ear 11/19/2021 Spinal enthesopathy 10/16/2021 Enthesopathy of hip region 10/16/2021 Atherosclerosis of aorta 10/16/2021 Assessment & Plan (03/05/2024 10:43 AM CDT): S/p total arch replacement PT/OT Aggressive pulmonary toilet CTS out Wires out Discharge planning- she is medically stable waiting on Son and the sister to tour facilities and decide which they want Assessment & Plan (03/04/2024 10:49 AM CDT): S/p total arch replacement PT/OT Aggressive pulmonary toilet CTS out Wires out Discharge planning- she is medically stable waiting on Son and the sister to tour facilities and decide which they want Assessment & Plan (03/03/2024 12:02 PM CDT): S/p total arch replacement PT/OT Aggressive pulmonary toilet CTS out Wires out Discharge planning- she is medically stable waiting on Son and the sister to tour facilities and decide which they want Assessment & Plan (02/29/2024 12:30 PM CDT): S/p total arch replacement PT/OT Aggressive pulmonary toilet CTS out +wires Assessment & Plan (02/27/2024 2:02 PM CDT): S/p total arch replacement PT/OT Aggressive pulmonary toilet CTS out +wires Assessment & Plan (02/25/2024 4:33 PM CDT): S/p total arch replacement PT/OT Aggressive pulmonary toilet CTS out +wires Pure hypercholesterolemia 10/16/2021 Localized, primary osteoarthritis of hand 2020 Parkinsonism 09/27/2019 Family history of heart disease 09/27/2019 Persistent depressive disorder 06/19/2019 Assessment & Plan (05/27/2025 10:55 PM CDT): Chronic condition, persistent symptoms. + struggling with grief The patient denies active suicidal Ideation. The following changes were made at today's appointment: None Reevaluate treatment/symptoms at interval per scheduled appointment. Assessment & Plan (03/04/2025 11:06 PM CDT): Chronic condition, persistent symptoms. +doing better overall The patient denies active suicidal Ideation. The following changes were made at today's appointment: None Reevaluate treatment/symptoms at interval per scheduled appointment. Assessment & Plan (12/27/2024 1:34 PM CDT): Chronic condition, persistent symptoms. +doing better overall The patient denies active suicidal Ideation. The following changes were made at today's appointment: None Reevaluate treatment/symptoms at interval per scheduled appointment. Assessment & Plan (11/01/2024 2:20 PM DECORATING SUPERVISOR): Chronic condition, persistent symptoms. +doing better overall The patient denies active suicidal Ideation. The following changes were made at today's appointment: None Reevaluate treatment/symptoms at interval per scheduled appointment. Assessment & Plan (09/11/2024 7:26 AM DECORATING SUPERVISOR): Acute on chronic condition, persistent symptoms. Abilify very beneficial from the standpoint of mood -reduced depressive symptoms, but intolerable side effects. The patient denies active suicidal Ideation. The following changes were made at today's appointment: Increase lamotrigine to 100 mg daily. Reevaluate treatment/symptoms at interval per scheduled appointment. Assessment & Plan (07/16/2024 11:04 PM CDT): Chronic condition, persistent symptoms. Abilify very beneficial from the standpoint of mood -reduced depressive symptoms, but intolerable side effects. The patient denies active suicidal Ideation. The following changes were made at today's appointment: None Reevaluate treatment/symptoms at interval per scheduled appointment. Assessment & Plan (05/07/2024 2:16 PM CDT): Chronic condition, persistent symptoms. Abilify very beneficial from the standpoint of mood -reduced depressive symptoms, but intolerable side effects. The patient denies active suicidal Ideation. The following changes were made at today's appointment: Start Vraylar 1.5 mg daily. Titrate for effectiveness. Reevaluate treatment/symptoms at interval per scheduled appointment. Assessment & Plan (03/19/2024 10:05 PM CDT): Chronic, stable. Depressive symptoms are well controlled on current medication regimen. Tolerating medications without any reported side effects. The patient denies active suicidal and homicidal ideation. The following changes were made at today's appointment: Discontinue immediate release Wellbutrin. Start Wellbutrin XL. Reevaluate treatment/symptoms at interval per scheduled appointment. Assessment & Plan (11/24/2023 12:01 PM DECORATING SUPERVISOR): Chronic, stable. Depressive symptoms are well controlled on current medication regimen. Tolerating medications without any reported side effects. The patient denies active suicidal and homicidal ideation. The following changes were made at today's appointment: None Reevaluate treatment/symptoms at interval per scheduled appointment. Assessment & Plan (10/31/2023 9:00 PM DECORATING SUPERVISOR): Chronic, persistent. Depressive symptoms are well partially controlled on current medication regimen. Tolerating medications without any reported side effects. The patient denies active suicidal and homicidal ideation. The following changes were made at today's appointment: None Reevaluate treatment/symptoms at interval per scheduled appointment. Assessment & Plan (07/06/2023 6:49 PM CDT): Chronic, persistent. Depressive symptoms are well partially controlled on current medication regimen. Tolerating medications without any reported side effects. The patient denies active suicidal and homicidal ideation. The following changes were made at today's appointment: None Reevaluate treatment/symptoms at interval per scheduled appointment. Assessment & Plan (04/25/2023 2:12 PM CDT): Chronic, persistent. Depressive symptoms are well partially controlled on current medication regimen. Tolerating medications without any reported side effects. The patient denies active suicidal and homicidal ideation. The following changes were made at today's appointment: Increase Wellbutrin XL to 450 mg daily Reevaluate treatment/symptoms at interval per scheduled appointment. Assessment & Plan (11/02/2022 6:21 AM DECORATING SUPERVISOR): Chronic condition, persistent symptoms, but functioning at or close to baseline at this time. Symptoms are reasonably well controlled on current medication regimen. The patient does not endorse any active suicidal ideation. Medication changes today: None Ongoing management to be provided as discussed and at interval as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 history exists Fall Risk Assessment 05/15/2026 05/15/2025, 12/06/2024, 11/15/2024, Additional history exists DTaP/Tdap/Td Vaccine (3 - Td or Tdap) 06/18/2033 06/18/2023, 03/29/2020, 06/25/2016 Pneumococcal vaccine 65+ Completed 019, 12/23/2015, 10/11/2009 Zoster Vaccine Completed 07/22/2021, 05/11, 04/04/2014 Goals Goal Patient Goal Type Associated Problems Recent Progress Patient-Stated? Author MELINDA General Goal - Patient is knowledgeable about condition when worsening and how to respond ACO Care Management Cassandra Alves, RN Note: Problem: Knowledge deficit related to signs and symptoms of worsening condition Interventions: - Assess patient's level of understanding related to their condition(s), specific medications and self-management of their chronic conditions. - Send educational materials to patient related to their chronic condition, including signs and symptoms, self-management actions, and serious symptoms that require urgent medical intervention. - Assist patient/provider in developing an action plan for symptom management. - Review with patient weekly: s/s worsening condition, self-management actions to take, when to call CM or provider. Medical Devices Implanted Type Area Beading Installer Device Identifier Shelf Expiration Date Model / Serial / Lot Terumo Cardio Vascular Gelweave 8mm 30cm Suture Retention Unique Hydrolyzable Abdomen [id number] - [id number] - [id number] Implanted:Qty: 1 on 02/14/2024 by Michelle Jefferson MD at [facility] [employer] Cardio Vascular [id number] 09/09/2026 [id number] / [id number] / [id number] [employer] Sternalock Kole 2.4mm 18mm Self Drill Lock Sternum Cancellous 73-2418 - [id number] Implanted:Qty: 2 on 02/14/2024 by Michelle Jefferson MD at [facility] N/A: Sternum [employer] [id number] / / Terumo Medical Bre Device Stent Hybrid Thoraflex Ante-Reginald Id28mm Od30mm X 100cm [id number] - [id number] - [id number] Implanted:Qty: 1 on 02/14/2024 by Michelle Jefferson MD at [facility] N/A: Aorta [employer] Medical Bre [id number] 01/09/2028 [id number] / [id number] / [id number] Description:MRI Safety Info: - 1.5T or 3.0T - Operating Mode: Normal Operating Mode - Maximum Whole-Body TASNEEM 2 W/kg (Normal Operating Mode) - Maximum Head TASNEEM 3.2 W/kg (Normal Operating Mode) - 15 continuous minutes of scan duration with 5 minutes wait time before additional scanning. Bard Peripheral Vascular 6x6in Patch Thk1.65mm [place] [facility] Ptfe Sterile Latex Free [id number] - [id number] Implanted:Qty: 1 on 02/14/2024 by Michelle Jefferson MD at [facility] N/A: Aorta [employer] Peripheral Vascular [id number] 08/07/2028 [id number] / / [id number] [employer] Sternalock 360 Sternal Closure 74-0004 - [id number] - [id number] Implanted:Qty: 1 on 02/14/2024 by Michelle Jefferson MD at [facility] [employer] [id number] 11/18/2028 74-0004 / [id number] / [id number] [employer] Sternalock Kole 24 Hole Sternum Straight Plate Bone Primary [id number] - [id number] Implanted:Qty: 1 on 02/14/2024 by Michelle Jefferson MD at [facility] N/A: Sternum [employer] [id number] / / [employer] Sternalock Kole 2.4mm 10mm Self Drill Lock Sternum Cancellous 73-2410 - [id number] Implanted:Qty: 5 on 02/14/2024 by Michelle Jefferson MD at [facility] N/A: Sternum [employer] [id number] / / [employer] Sternalock Kole 2.4mm 12mm Self Drill Lock Sternum Cancellous [id number] - [id number] Implanted:Qty: 12 on 02/14/2024 by Michelle Jefferson MD at [facility] N/A: Sternum [employer] [id number] / / [employer] Sternalock Kole 2.4mm 14mm Self Drill Lock Sternum Cancellous 73-2414 - [id number] Implanted:Qty: 3 on 02/14/2024 by Michelle Jefferson MD at [facility] N/A: Sternum [employer] [id number] / / [employer] Sternalock Kole 2.4mm 16mm Self Drill Lock Sternum Cancellous 73-2416 - [id number] Implanted:Qty: 4 on 02/14/2024 by Michelle Jefferson MD at [facility] N/A: Sternum [employer] [id number] / / Procedures Procedure Name Priority Date/Time Associated Diagnosis Comments CTA CHEST ABDOMEN PELVIS Schedule Routine, Read Routine (OP Routine) 04/18/2025 10:27 AM CDT Dissection of aorta, unspecified portion of aorta (HCC) POC ISTAT Routine 04/18/2025 10:23 AM CDT DEXA AXIAL SKELETON BONE DENSITY 1 OR MORE SITES Schedule Routine, Read Routine (OP Routine) 12/02/2022 11:35 AM DECORATING SUPERVISOR Postmenopausal from Last 3 Months or Most Recently Relevant to Health Maintenance Results * CTA Chest Abdomen Pelvis (04/18/2025 10:27 AM CDT) Anatomical Region Laterality Modality Body N/A Computed Tomogra phy 04/18/2025 2:43 PM CDT Impressions 04/18/2025 2:51 PM CDT 1. Stable postsurgical changes of valve sparing supracoronary ascending aorta and total arch repair with distal Thoraflex graft. 2. 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 3. 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 Dictated by: Ana Rollins M.D. The radiology attending physician has personally reviewed this study, and had reviewed and/or edited this written report and agrees with it. Electronically signed by: Ashkan Caceres M.D. 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 TECHNIQUE: CT angiography of the chest, abdomen and pelvis was performed prior to and following uneventful intravenous administration of 100 ml Optiray-350 using the pre-endoluminal stent graft protocol. Vascular 3D images were generated on a dedicated workstation and also reviewed. COMPARISON: Multiple prior CTs most recently 04/19/2024, 03/02/2024. FINDINGS: VASCULAR FINDINGS: Median sternotomy and postsurgical changes of the valve sparing supracoronary aortic arch and ascending aortic repair with distal Thoraflex graft.The graft extending to the proximal descending thoracic aorta and is unchanged in position. There is small focal residual dissection in the aortic root just proximal to the graft. There is decreased small amount of fluid/soft tissue thickening surrounding the graft. The Thoraflex graft covers origin of left subclavian artery which demonstrates short segment occlusion at the region with distal reconstitution by a branch of left vertebral artery (series 4 image 29). There is patent brachiocephalic trunk and left common carotid artery anastomosis. Sinus of Valsalva (cusp to to commissure): 31 x 30 x 34 mm. Ascending aorta (at sinotubular junction): 31 x 34 mm, previously 35 x 31 mm. Descending thoracic aorta and 20 x 20 mm NON-VASCULAR FINDINGS: Chest: Minimal bibasilar atelectasis. No pleural effusion. No pneumothorax. No suspicious pulmonary nodule. Normal size. No pericardial effusion. Median sternotomy with median sternotomy wires and distal plate and screw construct reconstruction. Again noted is a hypoattenuating left thyroid nodule measuring approximately 1.3 cm. No chest lymphadenopathy. Abdomen/Pelvis: No focal hepatic lesion. Gallbladder is normal. No intra-/extrahepatic biliary ductal dilatation. Spleen, pancreas, adrenal glands are unremarkable. Kidneys enhance symmetrically no hydronephrosis. Small left renal pole cyst unchanged. There is tiny foci of air in the urinary bladder which may be iatrogenic. Small hiatal hernia.There is a duodenal diverticulum. Small bowel and colon are normal course and caliber. No free peritoneal gas or free peritoneal fluid. No abdomen/pelvis lymphadenopathy. Atherosclerotic calcification of abdominal aorta without aneurysmal dilation. Multilevel degenerative disc disease of thoracolumbar spine most prominent at T11-T12 and T12-L1. No aggressive osseous lesion. 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 TECHNIQUE: CT angiography of the chest, abdomen and pelvis was performed prior to and following uneventful intravenous administration of 100 ml Optiray-350 using the pre-endoluminal stent graft protocol. Vascular 3D images were generated on a dedicated workstation and also reviewed. COMPARISON: Multiple prior CTs most recently 04/19/2024, 03/02/2024. FINDINGS: VASCULAR FINDINGS: Median sternotomy and postsurgical changes of the valve sparing supracoronary aortic arch and ascending aortic repair with distal Thoraflex graft.The graft extending to the proximal descending thoracic aorta and is unchanged in position. There is small focal residual dissection in the aortic root just proximal to the graft. There is decreased small amount of fluid/soft tissue thickening surrounding the graft. The Thoraflex graft covers origin of left subclavian artery which demonstrates short segment occlusion at the region with distal reconstitution by a branch of left vertebral artery (series 4 image 29). There is patent brachiocephalic trunk and left common carotid artery anastomosis. Sinus of Valsalva (cusp to to commissure): 31 x 30 x 34 mm. Ascending aorta (at sinotubular junction): 31 x 34 mm, previously 35 x 31 mm. Descending thoracic aorta and 20 x 20 mm NON-VASCULAR FINDINGS: Chest: Minimal bibasilar atelectasis. No pleural effusion. No pneumothorax. No suspicious pulmonary nodule. Normal size. No pericardial effusion. Median sternotomy with median sternotomy wires and distal plate and screw construct reconstruction. Again noted is a hypoattenuating left thyroid nodule measuring approximately 1.3 cm. No chest lymphadenopathy. Abdomen/Pelvis: No focal hepatic lesion. Gallbladder is normal. No intra-/extrahepatic biliary ductal dilatation. Spleen, pancreas, adrenal glands are unremarkable. Kidneys enhance symmetrically no hydronephrosis. Small left renal pole cyst unchanged. There is tiny foci of air in the urinary bladder which may be iatrogenic. Small hiatal hernia.There is a duodenal diverticulum. Small bowel and colon are normal course and caliber. No free peritoneal gas or free peritoneal fluid. No abdomen/pelvis lymphadenopathy. Atherosclerotic calcification of abdominal aorta without aneurysmal dilation. Multilevel degenerative disc disease of thoracolumbar spine most prominent at T11-T12 and T12-L1. No aggressive osseous lesion. IMPRESSION: 1. Stable postsurgical changes of valve sparing supracoronary ascending aorta and total arch repair with distal Thoraflex graft. 2. 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 3. 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 Dictated by: Ana Rollins M.D. The radiology attending physician has personally reviewed this study, and had reviewed and/or edited this written report and agrees with it. Electronically signed by: Ashkan Caceres M.D. Michelle Jefferson MD IM CT PROCEDURES Final Result * POC ISTAT (04/18/2025 10:23 AM CDT) Creatinine, POC, bld 1.1 0.6 - 1.3 mg/dL POC [facility] [id number] [facility] POC Performer [id number] [facility] Blood 04/18/2025 10:2 3 AM CDT 04/18/2025 10:23 AM CDT us Michelle Jefferson MD LAB BLOOD ORDERABLES Final Resul t [facility] [id number] [facility]. Department [place] [address] * Dexa Axial Skeleton Bone Density 1 or 2 Site (12/02/2022 11:35 AM DECORATING SUPERVISOR) Anatomical Region Laterality Modality Body N/A Digital Radiogra phy 12/02/2022 11:4 2 AM DECORATING SUPERVISOR Impressions 12/02/2022 12:41 PM DECORATING SUPERVISOR 1. The bone mineral density of the lumbar spine is normal. 2. The bone mineral density of the left femoral neck is mildly decreased. 3. The bone mineral density of the left total hip is normal. 4. Overall, the above findings are diagnostic of low bone mass (osteopenia) by WHO criteria. 5. Based on the FRAX fracture risk model, the 10-year probability for major osteoporotic fracture is 14% and that for hip fracture is 3.7%. This 10-year fracture risk estimate was calculated using the risk factors noted in the history above, along with the femoral neck bone density. FRAX is intended to help guide treatment decisions in men over age 50 and postmenopausal women with low bone mass (osteopenia). The National Osteoporosis Foundation (NOF) recommends that FDA-approved medical therapies be considered in postmenopausal women and men age 50 years and older with osteoporosis and those with low bone mass whose 10-year fracture probability by FRAX is >= 20% for major osteoporotic fracture or >= 3% for hip fracture. However, all treatment decisions require clinical judgment and consideration of individual patient factors, including patient preferences, comorbidities, previous drug use, risk factors not captured in the FRAX model (e.g., frailty, falls, vitamin D deficiency, increased bone turnover, interval significant decline in bone density) and possible under- or overestimation of fracture risk by FRAX. General comments regarding interpretation of bone density measurements: A) In children, premenopausal woman and males under age 50 not at increased risk for fractures only Z-scores, not T-scores are used to indicate risk. A Z-score above -2.0 is defined as within the expected range for age and Z-score at or less than -2.0 is below the expected range for age. A Z-score below the expected range for age in a patient with recent fractures and/or chronic corticosteroid treatment is consistent with a diagnosis of osteoporosis. B) In post menopausal women and males over 50, comparison of the measured bone mineral density with the average value in young normal subjects (the T-score) has been found to be useful in assessing fracture risk. Fracture risk approximately doubles for each 1.0 standard deviation (SD) in individual's hip or spine bone mineral density is below the average value of young normal subjects. The World Health Organization (WHO) has defined T-scores of -1.0 to -2.5 as diagnostic of low bone mass (OSTEOPENIA), and T-scores of -2.5 or lower to be diagnostic of OSTEOPOROSIS, based on the site of lowest bone density. Note that there will be a change in reporting format and reference databases as patients move from the younger population (group A) to the older population (group B) The National Osteoporosis Foundation (www.nof.org) recommends adequate intake of calcium and vitamin D and regular weight-bearing exercise in all patients. They recommend pharmacologic treatment in postmenopausal women and men age 50 and older presenting with any of the followin) Osteoporosis, after appropriate evaluation to exclude secondary causes. 2) A hip or vertebral (clinical or radiographic) fracture, regardless of the bone density. 3) Low bone mass (Osteopenia) and one or more of: other prior fractures, secondary causes associated with high risk of fracture (such as glucocorticoid use or total immobilization), or computed high risk of fracture (10-yr probability of hip fracture >= 3% or a 10-yr probability of any major osteoporosis-related fracture >= 20% based on the [place].-adapted WHO algorithm), available at http://www.shef.ac.uk/FRAX). Dictated by: Abhi Salvador MD The radiology attending physician has personally reviewed this study, and had reviewed and/or edited this written report and agrees with it. Electronically signed by: Ravinder Stevenson MD, Ph.D Narrative 12/02/2022 12:41 PM DECORATING SUPERVISOR BONE DENSITOMETRY OF THE SPINE AND HIP DATE OF STUDY: 12/02/2022 HISTORY: 77-year-old postmenopausal woman with height loss. She is being treated with no medications for bone density. Evaluate bone mineral density. Additional risk factors for fracture: Oophorectomy at age 34. FINDINGS (SPINE): The bone mineral density of L1-L4 was assessed by dual-energy x-ray absorptiometry. The average bone mineral density within this region is 0.991 gm/sq-cm. This is 2.1 standard deviations above the mean of the average bone mineral density for age- and gender-matched subjects (the Z-score). It is 0.5 standard deviations below the mean peak bone mineral density in young adults (the T-score). FINDINGS (FEMORAL NECK): The bone mineral density of the left femoral neck was assessed by dual-energy x-ray absorptiometry. The average bone mineral density within the femoral neck region is 0.642 gm/sq-cm. This is 0.4 standard deviations above the mean of the average bone mineral density for age- and gender-matched subjects (the Z-score). It is 1.9 standard deviations below the mean peak bone mineral density in young adults (the T-score). FINDINGS (TOTAL HIP): The bone mineral density of the left hip was assessed by dual-energy x-ray absorptiometry. The average bone mineral density within the total hip region is 0.839 gm/sq-cm. This is 1.2 standard deviations above the mean of the average bone mineral density for age- and gender-matched subjects (the Z-score). It is 0.8 standard deviations below the mean peak bone mineral density in young adults (the T-score). SUMMARY OF CURRENT RESULTS: Region BMD T-score Z-score AP Spine (L1-L4) 0.991 -0.5 2.1 Femoral Neck (Left) 0.642 -1.9 0.4 Total Hip (Left) 0.839 -0.8 1.2 Procedure Note Ravinder Lubin MD PhD - 12/02/2022 BONE DENSITOMETRY OF THE SPINE AND HIP DATE OF STUDY: 12/02/2022 HISTORY: 77-year-old postmenopausal woman with height loss. She is being treated with no medications for bone density. Evaluate bone mineral density. Additional risk factors for fracture: Oophorectomy at age 34. FINDINGS (SPINE): The bone mineral density of L1-L4 was assessed by dual-energy x-ray absorptiometry. The average bone mineral density within this region is 0.991 gm/sq-cm. This is 2.1 standard deviations above the mean of the average bone mineral density for age- and gender-matched subjects (the Z-score). It is 0.5 standard deviations below the mean peak bone mineral density in young adults (the T-score). FINDINGS (FEMORAL NECK): The bone mineral density of the left femoral neck was assessed by dual-energy x-ray absorptiometry. The average bone mineral density within the femoral neck region is 0.642 gm/sq-cm. This is 0.4 standard deviations above the mean of the average bone mineral density for age- and gender-matched subjects (the Z-score). It is 1.9 standard deviations below the mean peak bone mineral density in young adults (the T-score). FINDINGS (TOTAL HIP): The bone mineral density of the left hip was assessed by dual-energy x-ray absorptiometry. The average bone mineral density within the total hip region is 0.839 gm/sq-cm. This is 1.2 standard deviations above the mean of the average bone mineral density for age- and gender-matched subjects (the Z-score). It is 0.8 standard deviations below the mean peak bone mineral density in young adults (the T-score). SUMMARY OF CURRENT RESULTS: Region BMD T-score Z-score AP Spine (L1-L4) 0.991 -0.5 2.1 Femoral Neck (Left) 0.642 -1.9 0.4 Total Hip (Left) 0.839 -0.8 1.2 IMPRESSION: 1. The bone mineral density of the lumbar spine is normal. 2. The bone mineral density of the left femoral neck is mildly decreased. 3. The bone mineral density of the left total hip is normal. 4. Overall, the above findings are diagnostic of low bone mass (osteopenia) by WHO criteria. 5. Based on the FRAX fracture risk model, the 10-year probability for major osteoporotic fracture is 14% and that for hip fracture is 3.7%. This 10-year fracture risk estimate was calculated using the risk factors noted in the history above, along with the femoral neck bone density. FRAX is intended to help guide treatment decisions in men over age 50 and postmenopausal women with low bone mass (osteopenia). The National Osteoporosis Foundation (NOF) recommends that FDA-approved medical therapies be considered in postmenopausal women and men age 50 years and older with osteoporosis and those with low bone mass whose 10-year fracture probability by FRAX is >= 20% for major osteoporotic fracture or >= 3% for hip fracture. However, all treatment decisions require clinical judgment and consideration of individual patient factors, including patient preferences, comorbidities, previous drug use, risk factors not captured in the FRAX model (e.g., frailty, falls, vitamin D deficiency, increased bone turnover, interval significant decline in bone density) and possible under- or overestimation of fracture risk by FRAX. General comments regarding interpretation of bone density measurements: A) In children, premenopausal woman and males under age 50 not at increased risk for fractures only Z-scores, not T-scores are used to indicate risk. A Z-score above -2.0 is defined as within the expected range for age and Z-score at or less than -2.0 is below the expected range for age. A Z-score below the expected range for age in a patient with recent fractures and/or chronic corticosteroid treatment is consistent with a diagnosis of osteoporosis. B) In post menopausal women and males over 50, comparison of the measured bone mineral density with the average value in young normal subjects (the T-score) has been found to be useful in assessing fracture risk. Fracture risk approximately doubles for each 1.0 standard deviation (SD) in individual's hip or spine bone mineral density is below the average value of young normal subjects. The World Health Organization (WHO) has defined T-scores of -1.0 to -2.5 as diagnostic of low bone mass (OSTEOPENIA), and T-scores of -2.5 or lower to be diagnostic of OSTEOPOROSIS, based on the site of lowest bone density. Note that there will be a change in reporting format and reference databases as patients move from the younger population (group A) to the older population (group B) The National Osteoporosis Foundation (www.nof.org) recommends adequate intake of calcium and vitamin D and regular weight-bearing exercise in all patients. They recommend pharmacologic treatment in postmenopausal women and men age 50 and older presenting with any of the followin) Osteoporosis, after appropriate evaluation to exclude secondary causes. 2) A hip or vertebral (clinical or radiographic) fracture, regardless of the bone density. 3) Low bone mass (Osteopenia) and one or more of: other prior fractures, secondary causes associated with high risk of fracture (such as glucocorticoid use or total immobilization), or computed high risk of fracture (10-yr probability of hip fracture >= 3% or a 10-yr probability of any major osteoporosis-related fracture >= 20% based on the [place].-adapted WHO algorithm), available at http://www.shef.ac.uk/FRAX). Dictated by: Abhi Salvador MD The radiology attending physician has personally reviewed this study, and had reviewed and/or edited this written report and agrees with it. Electronically signed by: Ravinder Stevenson MD, Ph.D Marietta Villa MD IMG DXA PROCEDURES Fin al Result from Last 3 Months or Most Recently Relevant to Health Maintenance Insurance [employer] Member Subscriber Plan / Payer ( fective 2017-Present) Name:Jenny Villavicencio E Relation to Subscriber:Self Name:Allieserina Jenny Francine Payer ID:[id number] Group ID:[id number] Type:COMMERCIAL Address: [facility] [address] [place], [place] MEDICARE [employer] Member Subscriber Plan / Payer (Ef fective 2017-Present) Name:AllieJenny smalls E Relation to Subscriber:Self Name:Jenny Villavicencio Francine Payer ID:[id number] Group ID:Not on file Type:COMMERCIAL Address: [facility] [address] [place], [place] MEDICARE [employer] Advance Directives For more information, please contact: [phone] * Full Code (Latest Code Status on File) Date Activated Date Inactivated Comments 02/14/2024 4:17 PM 03/08/2024 5:49 PM * Full Code Date Activated Date Inactivated Comments 02/13/2024 8:14 PM 02/14/2024 4:17 PM * Full Code Date Activated Date Inactivated Comments 06/18/2023 10:53 PM 06/21/2023 5:34 PM * LIMITED - No CPR Date Activated Date Inactivated Comments 05/18/2018 2:03 AM 05/20/2018 4:26 PM Question Answer Comments Provide aggressive medical m anagement before a full cardiopulmonary arrest occurs. Use antibiotics, IV Fluids, and medical treatment unless specifically selected below: No intubation * Full Code Date Activated Date Inactivated Comments 05/18/2018 1:01 AM 05/18/2018 2:03 AM Care Teams Workflow Developer Relationship Specialty Start Date End Date Marietta Villa MD PCP - General Internal Medicine 10/05/17 Geeta Lara DPT Physical Therapist Physical Therapy 12/12/21 Miscellaneous, Not In File 03/08/24 Cassandra Good, MICAH [address] [place] [address] [place] [address] Lead Maintenance Technician 09/19/24
--- OUTSIDE RECORDS SUMMARY | 2025-06-22 10:33 | XMS_ITS | Clinical Summary ---
Author Organization [facility] Address [address] 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 22 Gram 0 03/30/2020 Active DULoxetine (CYMBALTA) 60 mg Capsule, Delayed Release(E.C.) 02/08/2020 Activ e buPROPion (WELLBUTRIN) 100 mg tablet 300 mg. 02/29/2020 Activ e gabapentin (NEURONTIN) 600 mg tablet 03/12/2020 Active atorvastatin (LIPITOR) 20 mg tablet 02/29/2020 Active enalapril (VASOTEC) 20 mg tablet 03/22/2020 Active ALPRAZolam (XANAX) 0.25 mg tablet 02/29/2020 Active HYDROcodone-bob taminophen (NORCO) 5-325 mg tablet 02/21/2020 Active primidone (MYSOLINE) 50 mg tablet 02/19/2020 Active Immunizations Immunization Administration Dates Next Due (ADACEL/BOOSTRIX)(10 YR UP) TDAP VACCINE, 0.5ML, IM 03/29/2020 Social History Tobacco Use Types Packs/Day Years Used Date Smoking Tobacco: Never Smokeless Tobacco: Never Comments Unknown Sex and Gender Information Value Date Recorded Sex Assigned at Not on file 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 Gender Identity Not on file Sexual Orientation Not on file Last Filed Vital Signs Vital Sign Reading Time Taken Comments Blood Pressure 131/85 03/29/2020 2:27 PM CDT Pulse 68 03/29/2020 2:27 PM CDT Temperature 36.8 C (98.2 F) 03/29/2020 2:27 PM CDT Respiratory Rate 17 03/29/2020 2:27 PM CDT Oxygen Saturation - - Inhaled Oxygen Concentration - - Weight 77.1 kg (170 lb) 03/29/2020 2:27 PM CDT Height 162.6 cm (5' 4) 03/29/2020 2:27 PM CDT Body Mass Index 29.18 03/29/2020 2:27 PM CDT Plan of Treatment Health Maintenance Due Date Last Done Comments PNEUMOCOCCAL VACCINE 50+ YEARS (1 of 1 - PCV) 10/18/18 94 ZOSTER VACCINE (1 of 2) 1993 OSTEOPOROSIS SCREENING 2008 RSV VACCINE (60+ or ) (1 - 1-dose 75+ series) 2018 INFLUENZA VACCINE (#1) 2025 DTAP/TDAP/TD VACCINES (2 - Td or Tdap) 03/29/2030 Care Teams Rigging And Controls Aircraft Mechanic Relationship Specialty Start Date End Date Marietta Villa MD PCP - General Internal Medicine 03/29/20
--- OUTSIDE RECORDS SUMMARY | 2025-06-22 10:33 | XMS_ITS | Clinical Summary ---
Author Organization [facility] [employer] Address [address] [place] [address] Care Team Providers Care Jewelry Making Instructor Name Role Phone Timothy De Guzman MD Primary Care Provider Source Comments [facility],non-owned Affiliates and Associated Physician Practices is amultiple site organization consisting of ambulatory clinics and hospital sitesin [place], [place], [place] and [place]. This disclosure is being madepursuant to the Care Everywhere program and may not contain all information available regarding this patient. Last updated 18.[facility] [employer] Allergies Active Allergy Reactions Criticality Noted Date Comments Sulfa Drugs 01/12/2012 Medications * Be aware that medications may not be up to date on this document. Alwaysverify current medications with the patient. hydrocodone-acet aminophen (LORTAB) 10-500 MG tablet Take 1 Tab by mouth every 4 hours as needed. Active enalapril (VASOTEC) 20 MG tablet Take 20 mg by mouth once daily. Active amLODIPine (NORVASC) 5 MG tablet Take 5 mg by mouth once daily. Active DULoxetine (CYMBALTA) 60 MG capsule Take 60 mg by mouth once daily. Active estrogens, conjugated, (PREMARIN) 0.3 MG tablet Take 0.3 mg by mouth once daily. 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 Gender Identity Not on file Sexual Orientation Not on file Last Filed Vital Signs Vital Sign Reading Time Taken Comments Blood Pressure 121/94 01/12/2012 11:56 AM CDT Pulse 67 01/12/2012 11:56 AM CDT Temperature 36.3 C (97.3 F) 01/12/2012 11:56 AM CDT Respiratory Rate 18 01/12/2012 11:56 AM CDT Oxygen Saturation 98% 01/12/2012 11:56 AM CDT Inhaled Oxygen Concentration - - Weight 81.6 kg (180 lb) 01/12/2012 10:04 AM CDT Height 162.6 cm (5' 4) 01/12/2012 10:04 AM CDT Body Mass Index 30.9 01/12/2012 10:04 AM CDT Plan of Treatment Health Maintenance Due Date Last Done Comments BONE DENSITY TESTING 1943 DTAP/TDAP/TD VACCINES (1 - Tdap) 1962 PNEUMOCOCCAL VACCINE 50+ (1 of 1 - PCV) 1993 ZOSTER VACCINE (1 of 2) 1993 Respiratory Syncytial Virus (RSV) Vaccine Pt: or over 60 yrs (1 - 1-dose 75+ series) 2018 DEPRESSION SCREENING 10/11/2024 COVID-19 VACCINE (1 - 2023-2 5 season) 2025 INFLUENZA VACCINE (#1) 2025 HEPATITIS B VACCINE Aged Out No longe r eligible based on patient's age to complete this topic HIB VACCINE Aged Out No longer eligi ble based on patient's age to complete this topic HPV VACCINE Aged Out No longer eligi ble based on patient's age to complete this topic MENINGOCOCCAL (Group B) VACC INE SHARED DECISION-MAKING Aged Out No longer eligibl e based on patient's age to complete this topic MENINGOCOCCAL GROUPS A/C/Y/W VACCINE Aged Out No longer eligible b ased on patient's age to complete this topic Insurance MEDICARE Care Teams Jewelry Making Instructor Relationship Specialty Start Date End Date Timothy De Guzman MD [address] [place] [id number] PCP - General 01/12/12
--- NOTE | 2025-06-22 13:04 | PC.NURSE ---
Pt. walked to bathroom by this RN. Pt. able to ambulate independently. Son at bedside with pt.
== END 2025-06-22 13:23 | disposition home or self-care (01) ==
PROVIDERS: Emergency Provider Emergency Medicine
DX: S60.811A Abrasion of right wrist, initial encounter (principal); E78.5 Hyperlipidemia, unspecified; I10 Essential (primary) hypertension; Z23 Encounter for immunization; W55.03XA Scratched by cat, initial encounter
CPT/HCPCS: 73110; 73200; 90471; 90715; 99284; A9270